=== PATIENT | female | born 1985 | race Two or more races ===

== ENCOUNTER 2024-01-09 10:22 | Inpatient (IN) | payer OTHER ==
[~2024-01-09] VITALS: Ht 152.4 cm; Wt 70.3 kg
[2024-01-09] MEDS ORDERED: 0.9 % SODIUM CHLORIDE 1,000 ML IV STA (10:25)
[2024-01-09] MEDS ORDERED: FAMOTIDINE/PF 20 MG in 0.9 % SODIUM CHLORIDE 8 ML IV PUSH STA (10:26)
[2024-01-09] MEDS ORDERED: PROMETHAZINE HCL 50 MG/ML AMPUL IM ONE (10:30)
[2024-01-09] MEDS ORDERED: INSULIN REGULAR, HUMAN 1,000 UNIT/10 ML UNITS IV NR (10:45)
--- NOTE | 2024-01-09 10:59 | NUR ---
SE RECIBE PACIENTE EN AMBULANCIA, ACOMPANADA DE FAMILIAR Y PARAMEDICOS. REFIE- VEDA VOMITOS X 10 O MAS. PARAMEDICOS INDICAN NIVELES DE AZUCAR EN HIGH. PACIENTE POCO COOPERADORA. SE NOTIFICA A MIS FALU DE TERAPIA RESPIRATORIA PARA ABG'S PRESTON PACIENTE NO COOPERA PARA SER REALIZADO. SE CANALIZA, SE ADMINISTRAN MEDICAMENTOS, SE COLOCA ARMANDO Y SE MELECIO MUESTRAS POR YANICK HARDY RN. SE CONEC TA A MONITOR CARDIACO CON SATUROMETRO Y SE COLOCA CANULA NASAL A 2 LITROS. SE COLOCA EN STANISLAV CON BARANDAS ELEVADAS Y SE MONITOREA POR CAMBIOS SIGNIFICATI- NICK.
[2024-01-09 11:04] LABS: HEMATOCRIT 37.7 % (36.0-45.00); HEMOGLOBIN 11.7 g/dL (12.0-15.00); MEAN CELL VOLUME 87.4 fL (80.00-100.00); PLATELET COUNT 440 K/uL (150-450); RED BLOOD COUNT 4.31 M/uL (4.00-6.00); RED CELL DISTRIBUTION WIDTH 15.4 % (11.5-14.5)
[2024-01-09] MEDS ORDERED: INSULINA (11:09)
[2024-01-09] MEDS ORDERED: GABAPENTIN300 M2 PO (11:10)
[2024-01-09 11:29] LABS: INR < 0.93; PARTIAL THROMBOPLASTIN TIME 20.5 SECONDS (22.0-34.0); PROTHROMBIN TIME 9.7 SECONDS (9.0-11.5)
[2024-01-09] MEDS ORDERED: KETOROLAC TROMETHAMINE 30 MG VIAL IV ONE (12:15)
[2024-01-09] MEDS ORDERED: LORazepam 2 MG/ML VIAL IV ONE (13:30)
[2024-01-09 14:32] LABS: ABG PH 7.268 (7.35-7.45); ABG PO2 139.1 mmHg (80-100); ABG pCO2 25.5 mmHg (35-45); BASE EXCESS -13.6 mmol/l; BICARBONATE 11.4 mmol/l (23-25); SaO2 98.5 %; Tco2 12.2 mmol/l
[2024-01-09 14:35] LABS: allen test SATISFACTORY; o2 21 %; puncture site RADIAL LEFT
--- NOTE | 2024-01-09 15:00 | NUR ---
SE RECIBE PACIENTE ALERTA Y ORIENTADA X3 Y COMBATIVA CON PERSONAL DE ENFERMERIA. AL MOMENTO PTE SE ENCUENTRA EN AREA DE ICU-2 EN STANISLAV EN POSICION SEMI SENTADA Y CONECTADA A MONITOR CARDIACO Y OXIMETRIA DE PULSO. AL MOMENTO SE OBSERVA CON IVF DE 0.9NSS BAJANDO POR ANGIO #22 EN AREA DE [facility]. SE MANTIENE BAJO OBSERVACION PARA CONTINUACION DE TRATAMIENTO.
[2024-01-09 15:16] LABS: ALBUMIN 3.7 gm/dL (3.4-5.0); BILIRUBIN TOTAL 0.75 mg/dL (0.3-1.2); CALCIUM 8.4 mg/dL (8.5-10.1); CREATININE SERUM 0.8 mg/dL (0.55-1.02); GFR 81.16; GLOBULINA 2.9 G/DL (2.4-3.5); POTASSIUM 4.54 mEq/L (3.5-5.1); TOTAL PROTEIN 6.6 gm/dL (6.4-8.2)
--- NOTE | 2024-01-09 16:35 | NUR ---
AL MOMENTO PACIENTE COMBATIVA SE DESCONECTA DE MONITOR CARDIACO Y OXIMETRIA DE PULSO. SE EDUCA A PACIENTE SOBRE NORMAS DEL AERA DONDE ESTA UBICADA LA CUAL LA MISMA REFIERE QUE NO LE IMPORTA. PACIENTE CAMINA HACIA DENY DE UNIDAD Y NO COOPERA CON ORDENES BRINDADAS.
[2024-01-09] MEDS ORDERED: CEFTRIAXONE SODIUM 2,000 MG in 0.9 % SODIUM CHLORIDE 100 ML IV SCH (17:02)
[2024-01-09] MEDS ORDERED: FAMOTIDINE/PF 20 MG in 0.9 % SODIUM CHLORIDE 8 ML IV PUSH SCH (17:02)
[2024-01-09] MEDS ORDERED: INSULIN REGULAR, HUMAN 100 UNITS in 0.9 % SODIUM CHLORIDE 100 ML IV SCH (17:15)
[2024-01-09] MEDS ORDERED: 0.9 % SODIUM CHLORIDE 1,000 ML IV ONE (17:15)
[2024-01-09] MEDS ORDERED: ONDANSETRON HCL 8 MG in 0.9 % SODIUM CHLORIDE 50 ML IV ONE (17:15)
[2024-01-09] MEDS ORDERED: ACETAMINOPHEN 500 MG GEL..CAP PO PRN (17:15)
[2024-01-09] MEDS ORDERED: ONDANSETRON HCL 4 MG in 0.9 % SODIUM CHLORIDE 50 ML IV PRN (17:15)
[2024-01-09] MEDS ORDERED: 0.9 % SODIUM CHLORIDE 1,000 ML IV SCH (17:15)
[2024-01-09] MEDS ORDERED: SODIUM BICARBONATE 1 MEQ/ML DISP.SYRIN 50ML IV ONE (18:00)
[2024-01-09 18:27] LABS: ABG PH 7.211 (7.35-7.45)
[2024-01-09 18:28] LABS: ABG PO2 155.3 mmHg (80-100); BASE EXCESS -18.1 mmol/l; BICARBONATE 7.5 mmol/l (23-25); SaO2 98.6 %; allen test SATISFACTORY; o2 21 %; puncture site RADIAL RIGHT
[2024-01-09 19:37] LABS: URINE APPEARANCE Clear; URINE BILIRRUBIN Negative (NEGATIVE); URINE BLOOD Negative; URINE COLOR Yellow; URINE LEUKOCYTE Negative; URINE NITRATE Negative; URINE PROTEIN Negative (NEGATIVE); URINE UROBILINOGEN 0.2 E.U./dl
[2024-01-09 19:41] LABS: URINE BACTERIA 12.5 uL (0.0-1933); URINE EPITHELIAL CELLS 2.7 uL (0.0-38.8); URINE WBC 2.7 uL (0.0-23.2)
[2024-01-09 19:42] LABS: URINE CAST 0.45 uL (0.0-1.40); URINE GLUCOSE >=1000 MG/DL (NEGATIVE); URINE KETONE >=160 (NEGATIVE); URINE RBC 0.4 uL (0.0-20.8)
[2024-01-09 20:21] LABS: COCAINE NEGATIVE (NEGATIVE); METHADONE NEGATIVE (NEGATIVE); OPIATES NEGATIVE (NEGATIVE); THC ( Cannabinoids) POSITIVE (NEGATIVE)
[2024-01-09 22:00] VITALS: BP 121/57; O2SAT 100
[2024-01-09] MEDS ORDERED: POTASSIUM CHLORIDE/D5W 1,000 ML IV SCH (22:00)
[2024-01-09 22:01] LABS: INR 1.03; PARTIAL THROMBOPLASTIN TIME 24.3 SECONDS (22.0-34.0); PROTHROMBIN TIME 11.2 SECONDS (9.0-11.5)
[2024-01-09 22:11] LABS: ALBUMIN 3.5 gm/dL (3.4-5.0); BILIRUBIN TOTAL 0.51 mg/dL (0.3-1.2); CALCIUM 7.6 mg/dL (8.5-10.1); CREATININE SERUM 0.85 mg/dL (0.55-1.02); GFR 75.68; GLOBULINA 3.3 G/DL (2.4-3.5); MAGNESIUM 1.7 mg/dL (1.8-2.4); PHOSPHOROUS 2.5 mg/dL (2.5-4.9); POTASSIUM 4.14 mEq/L (3.5-5.1); TOTAL PROTEIN 6.8 gm/dL (6.4-8.2)
[2024-01-09 22:12] LABS: C-REACTIVE PROTEIN 1.92 MG/DL (0.00-0.29)
[2024-01-10] VITALS (10 sets, daily range): BP systolic 120–127; BP diastolic 61–67; O2SAT 99–100
[2024-01-10] MEDS ORDERED: SODIUM CHLORIDE 0.45 % 1,000 ML IV SCH (00:45)
[2024-01-10] MEDS ORDERED: SODIUM BICARBONATE 1 MEQ/ML DISP.SYRIN 50ML IV ONE (00:45)
[2024-01-10] MEDS ORDERED: PROMETHAZINE HCL 50 MG/ML AMPUL IM ONE (01:15)
[2024-01-10] MEDS ORDERED: SODIUM BICARBONATE 50 MEQ IV SCH (06:30)
[2024-01-10] MEDS ORDERED: DEXTROSE IV SCH (06:30)
[2024-01-10] MEDS ORDERED: POTASSIUM CHLORIDE IV SCH (06:30)
[2024-01-10 08:00] LABS: CALCIUM 8.1 mg/dL (8.5-10.1); CREATININE SERUM 0.85 mg/dL (0.55-1.02); GFR 75.68; POTASSIUM 4.6 mEq/L (3.5-5.1)
[2024-01-10] MEDS ORDERED: KETOROLAC TROMETHAMINE 30 MG VIAL IV ONE (08:15)
[2024-01-10 08:16] LABS: TSH 0.225 uIU/mL (0.358-3.74)
[2024-01-10] MEDS ORDERED: THIAMINE HCL 100 MG/ML 2 ML VIAL IV SCH (09:00)
[2024-01-10] MEDS ORDERED: ENOXAPARIN SODIUM 40 MG/0.4 ML SYRINGE SUBCUTANEO SCH (09:00)
[2024-01-10] MEDS ORDERED: CLONAZEPAM 0.5 MG TABLET PO SCH (09:00)
[2024-01-10 16:35] LABS: ABG PO2 123.8 mmHg (80-100); ABG pCO2 22.2 mmHg (35-45); BASE EXCESS -13.9 mmol/l; BICARBONATE 10.4 mmol/l (23-25); Tco2 11.1 mmol/l
[2024-01-10 18:49] LABS: o2 32 %; puncture site RADIAL LEFT
[2024-01-10 18:50] LABS: allen test SATISFACTORY
[2024-01-10] MEDS ORDERED: ZOLPIDEM TARTRATE 10 MG TABLET PO SCH (21:00)
[2024-01-10 21:06] LABS: CALCIUM 7.8 mg/dL (8.5-10.1); CREATININE SERUM 0.72 mg/dL (0.55-1.02); GFR 91.65; POTASSIUM 3.77 mEq/L (3.5-5.1)
[2024-01-10] MEDS ORDERED: POTASSIUM CHLORIDE/D5-0.9%NACL 1,000 ML IV SCH (23:15)
[2024-01-11] VITALS (7 sets, daily range): BP systolic 82–132; BP diastolic 52–77; O2SAT 98–100
[2024-01-11] MEDS ORDERED: INSULIN GLARGINE,HUM.REC.ANLOG 1,000 UNITS/10 ML UNITS SUBCUTANEO STA (04:53)
[2024-01-11] MEDS ORDERED: DEXTROSE 50 % IN WATER 0.5 G/ML DISP.SYRIN IV PRN (08:00)
[2024-01-11] MEDS ORDERED: INSULIN LISPRO 1,000 UNIT/10 ML UNITS SUBCUTANEO PRN (08:00)
[2024-01-11 08:20] LABS: CREATININE SERUM 0.39 mg/dL (0.55-1.02); GFR 185.96; POTASSIUM 3.01 mEq/L (3.5-5.1)
[2024-01-11 08:46] LABS: CALCIUM 6.3 mg/dL (8.5-10.1)
[2024-01-11] MEDS ORDERED: GABAPENTIN 300 MG CAPSULE PO SCH (21:00)
== END 2024-01-11 07:47 | disposition left against medical advice (07) | DRG 639 ==
LOC: ER 10:22 → ICU-2 19:30
PROVIDERS: Emergency Medicine; General Practice; Internal Medicine; Internal Medicine Endocrinology, Diabetes & Metabolism; ADMIT Internal Medicine; ATTEND Internal Medicine
PROC: 02HV33Z Insertion of Infusion Device into Superior Vena Cava, Percutaneous Approach (ICD-10-PCS; principal; 2024-01-10)
DX: E10.10 Type 1 diabetes mellitus with ketoacidosis without coma (principal); E86.0 Dehydration; Z79.4 Long term (current) use of insulin